=== PATIENT | male | born 1955 | race Caucasian/White ===

== ENCOUNTER 2021-01-24 07:20 | Emergency (ER) | payer OTHER, SELFPAY ==
[~2021-01-24] VITALS: Ht 165.1 cm; Wt 97.7 kg
[2021-01-24 07:23] VITALS: BP 142/85
--- NOTE | 2021-01-24 07:46 | NUR ---
PATIENT WALKED BACK FROM TRIAGE WITH CHIEF C/O LEFT SHOULDER PAIN. PATIENT DENIES TRAUMA OR INJURY. PATIENT DOES NOT HAVE FULL ROM, DENIES NUMBNESS AND TINGLING. NADN, CALL LIGHT WITHIN REACH.
--- NOTE | 2021-01-24 07:57 | NUR ---
PATIENT TO IMAGING.
[2021-01-24] MEDS ORDERED: KETOROLAC 30 MG/1 ML IM ONE (08:00)
[2021-01-24] MEDS ORDERED: KETOROLAC 30 MG/1 ML ONE (08:14)
--- NOTE | 2021-01-24 08:21 | NUR ---
PATIENT MEDICATED PER eMAR, NADN, CALL LIGHT WITHIN REACH. WAITING FOR IMAGING RESULTS.
--- NOTE | 2021-01-24 09:20 | NUR ---
Patient given discharge instructions and prescription and they have confirmed that they understand the instructions. Patient ambulatory with steady gait. NAD, all questions answered appropriately, denies additional needs at this time. No personal belongings left in room after discharge.
== END 2021-01-24 09:20 | disposition home or self-care (01) ==
LOC: ED 09:11
DX: M25.512 Pain in left shoulder (principal); R94.31 Abnormal electrocardiogram [ECG] [EKG]
CPT/HCPCS: 73030; 93005; 96372; 99283; J1885